=== PATIENT | male | born 1955 | race Caucasian/White ===

== ENCOUNTER 2018-09-30 11:04 | Inpatient (IN) | payer SELFPAY ==
[2018-09-30 12:31] VITALS: BMI 24.7
--- NOTE | 2018-09-30 14:40 | HP ---
CIWA Score Nausea/Vomitin-No Nausea/No Vomiting Muscle Tremors: 4-Moderate,w/Arms Extend Anxiety: 2 Agitation: 3 Paroxysmal Sweats: 3 Orientation: 0-Oriented Tacttile Disturbances: 0-None Auditory Disturbances: 0-None Visual Disturbances: 0-None Headache: 0-None Present CIWA-Ar Total Score: 12 - Admission Criteria OASAS Guidelines: Admission for Medically Managed Detox: Requires at least one of the followin. CIWA greater than 12 2. Seizures within the past 24 hours 3. Delirium tremens within the past 24 hours 4. Hallucinations within the past 24 hours 5. Acute intervention needed for co occurring medical disorder 6. Acute intervention needed for co occurring psychiatric disorder 7. Severe withdrawal that cannot be handled at a lower level of care (continued vomiting, continued diarrhea, abnormal vital signs) requiring intravenous medication and/or fluids 8. Admission ROS [facility] - HPI Chief Complaint: I lost my job and started drinking excessively. Allergies/Adverse Reactions: Allergies Allergy/AdvReac Type Severity Reaction Status Date / Time No Known Allergies Allergy Verified 09/30/18 12:07 History of Present Illness: pt is a 63yrold male with a history of alcohol dependence seeking detox for treatment. Pt longest sobriety was one year. Exam Limitations: No Limitations - Ebola screening Have you traveled outside of the country in the last 21 days: No Have you had contact with anyone from an Ebola affected area: No Have you been sick,other than usual withdrawal symptoms: No Do you have a fever: No - Review of Systems Constitutional: Loss of Appetite, Night Sweats, Changes in sleep EENT: reports: Tearing, Nose Congestion Respiratory: reports: No Symptoms reported Cardiac: reports: Lightheadedness GI: reports: Constipated, Poor Fluid Intake : reports: No Symptoms Reported Musculoskeletal: reports: Other (mild left leg swelling. pt has appt with vascular MD end september) Integumentary: reports: No Symptoms Reported Neuro: reports: Tingling, Tremors Endocrine: reports: Excessive Sweating, Flushing, Intolerance to Cold, Intolerance to Heat Hematology: reports: No Symptoms Reported Psychiatric: reports: Judgement Intact, Mood/Affect Appropiate, Orientated x3, Agitated, Anxious Other Systems: Reviewed and Negative Patient History - Patient Medical History Hx Anemia: No Hx Asthma: No Hx Chronic Obstructive Pulmonary Disease (COPD): No Hx Cancer: No Hx Cardiac Disorders: No Hx Congestive Heart Failure: No Hx Hypertension: Yes (not taking any meds now) Hx Hypercholesterolemia: Yes (not taking any meds now) Hx Pacemaker: No HX Cerebrovascular Accident: No Hx Seizures: No Hx Dementia: No Hx Diabetes: No Hx Gastrointestinal Disorders: No Hx Liver Disease: No Hx Genitourinary Disorders: No Hx Sexually Transmitted Disorders: No Hx Renal Disease (ESRD): No Hx Thyroid Disease: No Hx Human Immunodeficiency Virus (HIV): No (negative) Hx Hepatitis C: No (negative) Hx Depression: Yes Hx Suicide Attempt: No (pt denies) Hx Bipolar Disorder: No Hx Schizophrenia: No - Patient Surgical History Past Surgical History: No Hx Neurologic Surgery: No Hx Cataract Extraction: No Hx Cardiac Surgery: No Hx Lung Surgery: No Hx Breast Surgery: No Hx Breast Biopsy: No Hx Abdominal Surgery: No Hx Appendectomy: No Hx Cholecystectomy: No Hx Genitourinary Surgery: No Hx Section: No Hx Orthopedic Surgery: No - PPD History Previous Implant?: Yes Documented Results: Negative w/o proof PPD to be Administered?: No - Reproductive History Patient is a Female of Child Bearing Age (11 -55 yrs old): No - Smoking Cessation Smoking history: Current every day smoker Have you smoked in the past 12 months: Yes Aproximately how many cigarettes per day: 10 Hx Chewing Tobacco Use: No Initiated information on smoking cessation: Yes 'Breaking Loose' booklet given: 09/30/18 - Substance & Tx. History Hx Alcohol Use: Yes Hx Substance Use: Yes Substance Use Type: Alcohol, Tranquilizers Hx Substance Use Treatment: No (last detox [facility] 6month ago) - Substances abused Alcohol Substance route: Oral Frequency: Daily Amount used: 2 PINT VODKA Age of first use: 17 Date of last use: 09/30/18 Benzodiazepine (Klonopin) Substance route: Oral Frequency: 1-2 times per week Amount used: 10MG Age of first use: 24 Date of last use: 09/26/18 Family Disease History - Family Disease History Family History: Denies Admission Physical Exam [facility] - Vital Signs Vital Signs: Vital Signs - 24 hr 09/30/18 09/30/18 12:22 13:29 Temperature 98 F 98 F Pulse Rate 71 71 Respiratory 14 14 Rate Blood Pressure 125/79 125/79 - Physical General Appearance: Yes: Within Normal Limits, Moderate Distress, Tremorous, Irritable, Sweating, Anxious HEENTM: Yes: Hearing grossly Normal, Normal Voice, Nasal Congestion, Rhinorrhea Respiratory: Yes: Lungs Clear, Normal Breath Sounds, No Respiratory Distress Neck: Yes: No masses,lesions,Nodules Breast: Yes: Within Normal Limits Cardiology: Yes: Regular Rhythm, Regular Rate, S1, S2 Abdominal: Yes: Normal Bowel Sounds, Non Tender, Soft Genitourinary: Yes: Within Normal Limits Back: Yes: Normal Inspection Musculoskeletal: Yes: full range of Motion, Back pain Extremities: Yes: Normal Capillary Refill, Normal Inspection, Non-Tender, Tremors Neurological: Yes: Fully Oriented, Alert, Normal Response Integumentary: Yes: Normal Color, Diaphoresis Lymphatic: Yes: Within Normal Limits - Diagnostic (1) Drug-induced mood disorder Current Visit: No Status: Acute (2) Hypertension Current Visit: Yes Status: Acute Qualifiers: Hypertension type: essential hypertension Qualified Code(s): I10 - Essential (primary) hypertension (3) Mood disorder Current Visit: No Status: Acute (4) GERD (gastroesophageal reflux disease) Current Visit: Yes Status: Chronic Qualifiers: Esophagitis presence: without esophagitis Qualified Code(s): K21.9 - Gastro -esophageal reflux disease without esophagitis (5) Methadone maintenance therapy patient Current Visit: Yes Status: Chronic Comment: last Methadone today with 60mg. pending verification (6) Nicotine dependence Current Visit: Yes Status: Chronic Qualifiers: Nicotine product type: cigarettes Substance use status: uncomplicated Qualified Code(s): F17.210 - Nicotine dependence, cigarettes, uncomplicated (7) Alcohol dependence with uncomplicated withdrawal Current Visit: Yes Status: Chronic Cleared for Admission [facility] - Detox or Rehab [facility] Level of Care: Medically Managed Detox Regimen/Protocol: Librium Breathalyzer - Breathalyzer Breathalyzer: 0.41 Urine Drug Screen - Test Device Lot number: [id number] Expiration date: 07/16/20 - Control Is test valid?: Yes - Results Drug screen NEGATIVE: No Urine drug screen results: MTD-Methadone Inpatient Rehab Admission - Rehab Decision to Admit Inpatient rehab admission?: No
[2018-09-30] MEDS ORDERED: MELATONIN 5 MG TABLETS PO PRN (14:49)
[2018-09-30] MEDS ORDERED: chlordiazePOXIDE HCL 25 MG CAPSULE PO PRN (14:49)
[2018-09-30] MEDS ORDERED: NICOTINE POLACRILEX 4 MG GUM BUC PRN (14:49)
[2018-09-30] MEDS ORDERED: IBUPROFEN 400 MG TABLET (FP) PO PRN (14:49)
[2018-09-30] MEDS ORDERED: MENTHOL/PHENOL 1 EACH UD MM PRN (14:49)
[2018-09-30] MEDS ORDERED: ACETAMINOPHEN 325 MG TABLET (FP) PO PRN ×2 (14:49)
[2018-09-30] MEDS ORDERED: MAGNESIUM CITRATE 300 ML BOTTLE PO PRN (14:49)
[2018-09-30] MEDS ORDERED: MAG HYDROX/AL HYDROX/SIMETH 30 ML UNIT-DOSE CUP PO PRN (14:49)
[2018-09-30] MEDS ORDERED: MAGNESIUM HYDROX 2400MG/30ML ORAL SUSPENSION 30 ML CUP PO PRN (14:49)
[2018-09-30] MEDS ORDERED: ONDANSETRON *ODT* 4 MG TABLET SL PRN (14:49)
[2018-09-30] MEDS ORDERED: METHOCARBAMOL 500 MG TABLET PO PRN (14:49)
[2018-09-30] MEDS ORDERED: hydrOXYzine PAMOATE 25 MG CAPSULE (FP) PO PRN (14:49)
[2018-09-30] MEDS: chlordiazePOXIDE HCL 25 MG CAPSULE PO SCH ×2 (16:43→22:06)
--- NOTE | 2018-09-30 17:20 | PN ---
[facility] Progress Note Note: Got a call from the nurse stating that pt has a bottle of seroquel which shows that pt is prescribed seroquel 400mg qhs- will give one dose 200mg qhs and h/u MH tomorrow
[2018-09-30] MEDS ORDERED: QUEtiapine FUMARATE 200 MG TABLET PO ONE (18:00)
[2018-09-30] MEDS ORDERED: QUEtiapine FUMARATE 200 MG TABLET PO SCH (22:00)
[2018-09-30] MEDS: THIAMINE HCL 100 MG TABLET (FP) PO SCH (22:05)
[2018-09-30 23:54] LABS: HEMOGLOBIN 14.1 GM/dL (11.7-16.9); MCH 31.4 pg (25.7-33.7); MCHC 34.3 g/dl (32.0-35.9); MEAN CELL VOLUME 91.6 fl (80-96); MEAN PLT VOLUME 8.5 fl (7.5-11.1); PLATELET COUNT 252 K/MM3 (134-434); RBC 4.48 M/mm3 (4.00-5.60); WHITE BLOOD COUNT 5.4 K/mm3 (4.0-10.0)
[2018-10-01 00:06] LABS: ALBUMIN 3.7 g/dl (3.4-5.0); BILIRUBIN,TOTAL 0.6 mg/dL (0.2-1); CALCIUM 8.6 mg/dL (8.5-10.1); CREATININE 0.7 mg/dL (0.55-1.3); POTASSIUM 4.5 mmol/L (3.5-5.1); TOT PROT 8.1 g/dl (6.4-8.2)
[2018-10-01] MEDS ORDERED: METHADONE HCL 40 MG DISPERSABLE TABLET ONE (05:33)
[2018-10-01] MEDS ORDERED: METHADONE HCL 10 MG TABLET ONE (05:33)
[2018-10-01] MEDS: chlordiazePOXIDE HCL 25 MG CAPSULE PO SCH ×4 (05:34→22:01)
[2018-10-01] MEDS: METHADONE 40 MG, METHADONE 20 MG PO SCH (05:34)
[2018-10-01] MEDS ORDERED: METHADONE HCL 10 MG TABLET PO SCH (06:00)
--- NOTE | 2018-10-01 10:00 | CONSULT ---
[facility] Psychiatric Consult - Data Date of interview: 10/01/18 Admission source: [facility] Identifying data: Patient is a 63 year old single male, without children, unemployed, and is currently homeless. This is one of multiple admissions for patient. Patient admitted to for alcohol dependence. Substance Abuse History: - Smoking Cessation. Smoking history: Current every day smoker. Have you smoked in the past 12 months: Yes. Aproximately how many cigarettes per day: 10. Hx Chewing Tobacco Use: No. Initiated information on smoking cessation: Yes. 'Breaking Loose' booklet given: 09/30/18. - Substance & Tx. History. Hx Alcohol Use: Yes. Hx Substance Use: Yes. Substance Use Type : Alcohol, Tranquilizers. Hx Substance Use Treatment: No (last detox [facility] 6[facility] ago). - Substances abused. Alcohol. Substance route: Oral. Frequency: Daily. Amount used: 2 PINT VODKA. Age of first use: 17. Date of last use: 09/30/18. Benzodiazepine (Klonopin). Substance route: Oral. Frequency: 1-2 times per week. Amount used: 10MG. Age of first use: 24. Date of last use: 09/26/18 Medical History: hypertension, hypercholesterolemia, GERD Psychiatric History: Patient denies h/o psychiatric hospitalization and suicide attempt. States his first psychiatric contact was last year after he saw a psychiatrist in [place], [place] at an outpatient clinic to address his depression. As per previous entries, patient has been provided with outpatient psychiatric care at the [facility] in 2014. Mr. Jones reports a diagnosis of depression. Currently, Mr. Jones reports taking seroquel 400mg HS. External records reviewed and medications verified. Patient received a one time dose of seroquel 200mg last night. At present, patient presents as slightly irritable. Physical/Sexual Abuse/Trauma History: Patient denies h/o physical and sexual abuse Mental Status Exam - Mental Status Exam Alert and Oriented to: Time, Place, Person Cognitive Function: Good Patient Appearance: Well Groomed Mood: Withdrawn, Irritable (slightly irritable) Affect: Mood Congruent Patient Behavior: Fatigued, Cooperative Speech Pattern: Clear Voice Loudness: Moderately Soft/Quiet Thought Process: Goal Oriented Thought Disorder: Not Present Hallucinations: Denies Suicidal Ideation: Denies Homicidal Ideation: Denies Insight/Judgement: Poor Sleep: Fair Appetite: Fair Muscle strength/Tone: Normal Gait/Station: Normal Psychiatric Findings - Problem List ([place] 1, 2,3) (1) Alcohol dependence with uncomplicated withdrawal Current Visit: Yes Status: Acute (2) Nicotine dependence Current Visit: Yes Status: Chronic Qualifiers: Nicotine product type: cigarettes Substance use status: uncomplicated Qualified Code(s): F17.210 - Nicotine dependence, cigarettes, uncomplicated (3) Mood disorder Current Visit: Yes Status: Chronic - Initial Treatment Plan Initial Treatment Plan: Psychoeducation provided. Detoxification in progress. Will order Seroquel 300mg HS (medication reduce due to risk of falls and oversedation). Benefits and side effects discussed. Verbal consent given.
[2018-10-01] MEDS: ENALAPRIL MALEATE 10 MG TABLET (FP) PO SCH (10:25)
[2018-10-01] MEDS: PRENATAL VITAMINS W/ FOLIC ACID TABLET (FP) PO SCH (10:25)
[2018-10-01] MEDS: ASPIRIN COATED 81 MG TABLET.EC PO SCH (10:26)
[2018-10-01] MEDS: NICOTINE 21 MG/24 HOURS TOPICAL PATCH TD SCH (10:26)
--- NOTE | 2018-10-01 11:11 | PN ---
[facility] CIWA - CIWA Score Nausea/Vomitin-Mild Nausea/No Vomiting Muscle Tremors: 2 Anxiety: 4-Mod. Anxious/Guarded Agitation: 3 Paroxysmal Sweats: 1-Minimal Palms Moist Orientation: 0-Oriented Tacttile Disturbances: 0-None Auditory Disturbances: 0-None Visual Disturbances: 0-None Headache: 0-None Present CIWA-Ar Total Score: 11 S Progress Note (SOAP) Subjective: feeling ok today after methadone 60 mg po received 63 years old male admitted on 09/30/18 for alcohol and benzo withdrawal sx medical history of hypertension treated with lisinopril Objective: 10/01/18 11:11 Vital Signs Temperature 96.8 F L 10/01/18 09:09 Pulse Rate 65 10/01/18 09:09 Respiratory Rate 18 10/01/18 09:09 Blood Pressure 139/75 10/01/18 09:09 O2 Sat by Pulse Oximetry (%) Laboratory Last Values WBC 5.4 K/mm3 (4.0-10.0) 09/30/18 15:00 RBC 4.48 M/mm3 (4.00-5.60) 09/30/18 15:00 Hgb 14.1 GM/dL (11.7-16.9) 09/30/18 15:00 Hct 41.0 % (35.4-49) 09/30/18 15:00 MCV 91.6 fl (80-96) 09/30/18 15:00 MCH 31.4 pg (25.7-33.7) 09/30/18 15:00 MCHC 34.3 g/dl (32.0-35.9) 09/30/18 15:00 RDW 13.0 % (11.9-15.9) 09/30/18 15:00 Plt Count 252 K/MM3 (134-434) D 09/30/18 15:00 MPV 8.5 fl (7.5-11.1) 09/30/18 15:00 Sodium 138 mmol/L (136-145) 09/30/18 15:00 Potassium 4.5 mmol/L (3.5-5.1) 09/30/18 15:00 Chloride 102 mmol/L (98-107) 09/30/18 15:00 Carbon Dioxide 30 mmol/L (21-32) 09/30/18 15:00 Anion Gap 6 MMOL/L (8-16) L 09/30/18 15:00 BUN 15.0 mg/dL (7-18) 09/30/18 15:00 Creatinine 0.7 mg/dL (0.55-1.3) 09/30/18 15:00 Est GFR (CKD-EPI)AfAm 115.59 09/30/18 15:00 Est GFR (CKD-EPI)NonAf 99.73 09/30/18 15:00 Random Glucose 81 mg/dL (74-106) 09/30/18 15:00 Calcium 8.6 mg/dL (8.5-10.1) 09/30/18 15:00 Total Bilirubin 0.6 mg/dL (0.2-1) 09/30/18 15:00 AST 178 U/L (15-37) H 09/30/18 15:00 ALT 173 U/L (13-61) H 09/30/18 15:00 Alkaline Phosphatase 174 U/L (45-117) H 09/30/18 15:00 Total Protein 8.1 g/dl (6.4-8.2) 09/30/18 15:00 Albumin 3.7 g/dl (3.4-5.0) 09/30/18 15:00 RPR Titer Nonreactive (NONREACTIVE) 09/30/18 15:00 TB Test (QFT) Nil Cancelled 10/01/18 08:20 TB Test (QFT) Mitogen Cancelled 10/01/18 08:20 TB Test (QFT) Antigen Cancelled 10/01/18 08:20 TB Test (QFT) Cancelled 10/01/18 08:20 TB Positive Criteria Cancelled 10/01/18 08:20 lab noted ast elevation repeat ast 10/03/18 10/01/18 11:13 Assessment: 10/01/18 11:14 alcohol and benzo withdrawal sx Plan: continue alcohol and benzo detox
[2018-10-01] MEDS ORDERED: QUEtiapine FUMARATE 100 MG TABLET (FP) ONE (20:58)
[2018-10-01] MEDS: THIAMINE HCL 100 MG TABLET (FP) PO SCH (22:01)
[2018-10-01] MEDS: QUEtiapine FUMARATE 300 MG TABLET PO SCH (22:02)
[2018-10-02] MEDS ORDERED: METHADONE HCL 10 MG TABLET ONE (04:13)
[2018-10-02] MEDS ORDERED: METHADONE HCL 40 MG DISPERSABLE TABLET ONE (04:14)
[2018-10-02] MEDS: chlordiazePOXIDE HCL 25 MG CAPSULE PO SCH ×4 (06:48→22:05)
[2018-10-02] MEDS: METHADONE 40 MG, METHADONE 20 MG PO SCH (06:48)
[2018-10-02] MEDS: NICOTINE 21 MG/24 HOURS TOPICAL PATCH TD SCH (10:24)
[2018-10-02] MEDS: ASPIRIN COATED 81 MG TABLET.EC PO SCH (10:24)
[2018-10-02] MEDS: PRENATAL VITAMINS W/ FOLIC ACID TABLET (FP) PO SCH (10:24)
[2018-10-02] MEDS: ENALAPRIL MALEATE 10 MG TABLET (FP) PO SCH (10:24)
--- NOTE | 2018-10-02 14:58 | PN ---
[facility] CIWA - CIWA Score Nausea/Vomitin-Mild Nausea/No Vomiting Muscle Tremors: 2 Anxiety: 3 Agitation: 2 Paroxysmal Sweats: No Perspiration Orientation: 0-Oriented Tacttile Disturbances: 0-None Auditory Disturbances: 0-None Visual Disturbances: 0-None Headache: 0-None Present CIWA-Ar Total Score: 8 S Progress Note (SOAP) Subjective: anxiousness headaches willing to discuss aftercare with staff today that he is willing to go any aftercare arranged for him Objective: 10/02/18 15:02 Vital Signs Temperature 97.8 F 10/02/18 13:21 Pulse Rate 60 10/02/18 13:21 Respiratory Rate 18 10/02/18 13:21 Blood Pressure 97/61 10/02/18 13:21 O2 Sat by Pulse Oximetry (%) Laboratory Last Values WBC 5.4 K/mm3 (4.0-10.0) 09/30/18 15:00 RBC 4.48 M/mm3 (4.00-5.60) 09/30/18 15:00 Hgb 14.1 GM/dL (11.7-16.9) 09/30/18 15:00 Hct 41.0 % (35.4-49) 09/30/18 15:00 MCV 91.6 fl (80-96) 09/30/18 15:00 MCH 31.4 pg (25.7-33.7) 09/30/18 15:00 MCHC 34.3 g/dl (32.0-35.9) 09/30/18 15:00 RDW 13.0 % (11.9-15.9) 09/30/18 15:00 Plt Count 252 K/MM3 (134-434) D 09/30/18 15:00 MPV 8.5 fl (7.5-11.1) 09/30/18 15:00 Sodium 138 mmol/L (136-145) 09/30/18 15:00 Potassium 4.5 mmol/L (3.5-5.1) 09/30/18 15:00 Chloride 102 mmol/L (98-107) 09/30/18 15:00 Carbon Dioxide 30 mmol/L (21-32) 09/30/18 15:00 Anion Gap 6 MMOL/L (8-16) L 09/30/18 15:00 BUN 15.0 mg/dL (7-18) 09/30/18 15:00 Creatinine 0.7 mg/dL (0.55-1.3) 09/30/18 15:00 Est GFR (CKD-EPI)AfAm 115.59 09/30/18 15:00 Est GFR (CKD-EPI)NonAf 99.73 09/30/18 15:00 Random Glucose 81 mg/dL (74-106) 09/30/18 15:00 Calcium 8.6 mg/dL (8.5-10.1) 09/30/18 15:00 Total Bilirubin 0.6 mg/dL (0.2-1) 09/30/18 15:00 AST 178 U/L (15-37) H 09/30/18 15:00 ALT 173 U/L (13-61) H 09/30/18 15:00 Alkaline Phosphatase 174 U/L (45-117) H 09/30/18 15:00 Total Protein 8.1 g/dl (6.4-8.2) 09/30/18 15:00 Albumin 3.7 g/dl (3.4-5.0) 09/30/18 15:00 RPR Titer Nonreactive (NONREACTIVE) 09/30/18 15:00 TB Test (QFT) Nil Cancelled 10/01/18 08:20 TB Test (QFT) Mitogen Cancelled 10/01/18 08:20 TB Test (QFT) Antigen Cancelled 10/01/18 08:20 TB Test (QFT) Cancelled 10/01/18 08:20 TB Positive Criteria Cancelled 10/01/18 08:20 lab noted Assessment: 10/02/18 15:03 alcohol and benzo withdrawal sx Plan: continue alcohol and benzo detox
--- NOTE | 2018-10-02 15:56 | EKG ---
Test Reason : Blood Pressure : / mmHG Vent. Rate : 070 BPM Atrial Rate : 070 BPM P-R Int : 134 ms QRS Dur : 084 ms QT Int : 420 ms P-R-T Axes : 024 058 062 degrees QTc Int : 453 ms NORMAL SINUS RHYTHM NORMAL ECG NO PREVIOUS ECGS AVAILABLE Confirmed by FAITH HUDSON, ISAIAS ([id number]) on 10/02/2018 3:56:09 PM Referred By: Confirmed By:ISAIAS CUEVAS MD
[2018-10-02] MEDS ORDERED: QUEtiapine FUMARATE 100 MG TABLET (FP) ONE (19:41)
[2018-10-02] MEDS: THIAMINE HCL 100 MG TABLET (FP) PO SCH (22:04)
[2018-10-02] MEDS: QUEtiapine FUMARATE 300 MG TABLET PO SCH (22:04)
[2018-10-03] MEDS ORDERED: METHADONE HCL 10 MG TABLET ONE (04:44)
[2018-10-03] MEDS ORDERED: METHADONE HCL 40 MG DISPERSABLE TABLET ONE (04:44)
[2018-10-03] MEDS: chlordiazePOXIDE HCL 10 MG CAPSULE PO SCH ×4 (05:37→22:07)
[2018-10-03] MEDS: METHADONE 40 MG, METHADONE 20 MG PO SCH (05:37)
[2018-10-03] MEDS: ASPIRIN COATED 81 MG TABLET.EC PO SCH (10:30)
[2018-10-03] MEDS: NICOTINE 21 MG/24 HOURS TOPICAL PATCH TD SCH (10:30)
[2018-10-03] MEDS: PRENATAL VITAMINS W/ FOLIC ACID TABLET (FP) PO SCH (10:30)
[2018-10-03] MEDS: ENALAPRIL MALEATE 10 MG TABLET (FP) PO SCH (11:06)
--- NOTE | 2018-10-03 11:36 | PN ---
S CIWA - CIWA Score Nausea/Vomitin-No Nausea/No Vomiting Muscle Tremors: 2 Anxiety: 2 Agitation: 2 Paroxysmal Sweats: 1-Minimal Palms Moist Orientation: 0-Oriented Tacttile Disturbances: 0-None Auditory Disturbances: 0-None Visual Disturbances: 0-None Headache: 0-None Present CIWA-Ar Total Score: 7 S Progress Note (SOAP) Subjective: feeling better today social with peers in day room ambulating on hallway less tremor discuss aftercare with staff prefers [facility] Objective: 10/03/18 11:36 Vital Signs Temperature 97.4 F L 10/03/18 09:14 Pulse Rate 67 10/03/18 09:14 Respiratory Rate 16 10/03/18 09:14 Blood Pressure 99/62 10/03/18 09:14 O2 Sat by Pulse Oximetry (%) Laboratory Last Values WBC 5.4 K/mm3 (4.0-10.0) 09/30/18 15:00 RBC 4.48 M/mm3 (4.00-5.60) 09/30/18 15:00 Hgb 14.1 GM/dL (11.7-16.9) 09/30/18 15:00 Hct 41.0 % (35.4-49) 09/30/18 15:00 MCV 91.6 fl (80-96) 09/30/18 15:00 MCH 31.4 pg (25.7-33.7) 09/30/18 15:00 MCHC 34.3 g/dl (32.0-35.9) 09/30/18 15:00 RDW 13.0 % (11.9-15.9) 09/30/18 15:00 Plt Count 252 K/MM3 (134-434) D 09/30/18 15:00 MPV 8.5 fl (7.5-11.1) 09/30/18 15:00 Sodium 138 mmol/L (136-145) 09/30/18 15:00 Potassium 4.5 mmol/L (3.5-5.1) 09/30/18 15:00 Chloride 102 mmol/L (98-107) 09/30/18 15:00 Carbon Dioxide 30 mmol/L (21-32) 09/30/18 15:00 Anion Gap 6 MMOL/L (8-16) L 09/30/18 15:00 BUN 15.0 mg/dL (7-18) 09/30/18 15:00 Creatinine 0.7 mg/dL (0.55-1.3) 09/30/18 15:00 Est GFR (CKD-EPI)AfAm 115.59 09/30/18 15:00 Est GFR (CKD-EPI)NonAf 99.73 09/30/18 15:00 Random Glucose 81 mg/dL (74-106) 09/30/18 15:00 Calcium 8.6 mg/dL (8.5-10.1) 09/30/18 15:00 Total Bilirubin 0.6 mg/dL (0.2-1) 09/30/18 15:00 AST 22 U/L (15-37) 10/03/18 07:00 ALT 173 U/L (13-61) H 09/30/18 15:00 Alkaline Phosphatase 174 U/L (45-117) H 09/30/18 15:00 Total Protein 8.1 g/dl (6.4-8.2) 09/30/18 15:00 Albumin 3.7 g/dl (3.4-5.0) 09/30/18 15:00 RPR Titer Nonreactive (NONREACTIVE) 09/30/18 15:00 TB (QFT) Incubation (.) 10/01/18 08:05 TB Test (QFT) Nil Cancelled 10/01/18 08:20 TB Test (QFT) Mitogen Cancelled 10/01/18 08:20 TB Test (QFT) Antigen Cancelled 10/01/18 08:20 TB Test (QFT) Cancelled 10/01/18 08:20 TB Positive Criteria Cancelled 10/01/18 08:20 lab noted Assessment: 10/03/18 11:37 alcohol and benzo withdrawal sx Plan: continue alcohol and benzo detox
[2018-10-03] MEDS ORDERED: QUEtiapine FUMARATE 100 MG TABLET (FP) ONE (21:05)
[2018-10-03] MEDS: THIAMINE HCL 100 MG TABLET (FP) PO SCH (22:07)
[2018-10-03] MEDS: QUEtiapine FUMARATE 300 MG TABLET PO SCH (22:07)
[2018-10-04] MEDS ORDERED: METHADONE HCL 10 MG TABLET ONE (04:44)
[2018-10-04] MEDS ORDERED: METHADONE HCL 40 MG DISPERSABLE TABLET ONE (04:45)
[2018-10-04] MEDS: METHADONE 40 MG, METHADONE 20 MG PO SCH (05:20)
[2018-10-04] MEDS: chlordiazePOXIDE HCL 10 MG CAPSULE PO SCH ×2 (05:20→17:24)
[2018-10-04] MEDS: PRENATAL VITAMINS W/ FOLIC ACID TABLET (FP) PO SCH (10:18)
[2018-10-04] MEDS: ASPIRIN COATED 81 MG TABLET.EC PO SCH (10:19)
[2018-10-04] MEDS: ENALAPRIL MALEATE 10 MG TABLET (FP) PO SCH (10:19)
[2018-10-04] MEDS: NICOTINE 21 MG/24 HOURS TOPICAL PATCH TD SCH (10:19)
--- NOTE | 2018-10-04 16:01 | PN ---
S CIWA - CIWA Score Nausea/Vomitin-No Nausea/No Vomiting Muscle Tremors: None Anxiety: 3 Agitation: 1-Slight > Activity Paroxysmal Sweats: No Perspiration Orientation: 0-Oriented Tacttile Disturbances: 1-Very Mild Itch/Numbness Auditory Disturbances: 0-None Visual Disturbances: 0-None Headache: 0-None Present CIWA-Ar Total Score: 5 BHS Progress Note (SOAP) Subjective: Anxious. Objective: PATIENT A & O X 3, OBSERVED AMBULATING ON UNIT UNASSISTED. IN NO ACUTE DISTRESS. 10/04/18 15:59 Vital Signs Temperature 99.0 F 10/04/18 13:55 Pulse Rate 68 10/04/18 13:55 Respiratory Rate 18 10/04/18 13:55 Blood Pressure 101/64 10/04/18 13:55 O2 Sat by Pulse Oximetry (%) Laboratory Tests 09/30/18 09/30/18 09/30/18 15:00 15:00 15:00 WBC 5.4 RBC 4.48 Hgb 14.1 Hct 41.0 MCV 91.6 MCH 31.4 MCHC 34.3 RDW 13.0 Plt Count 252 D MPV 8.5 Sodium 138 Potassium 4.5 Chloride 102 Carbon Dioxide 30 Anion Gap 6 L BUN 15.0 Creatinine 0.7 Est GFR (CKD-EPI)AfAm 115.59 Est GFR (CKD-EPI)NonAf 99.73 Random Glucose 81 Calcium 8.6 Total Bilirubin 0.6 AST 178 H ALT 173 H Alkaline Phosphatase 174 H Total Protein 8.1 Albumin 3.7 RPR Titer Nonreactive TB (QFT) Incubation TB Test (QFT) Nil TB Test (QFT) Mitogen TB Test (QFT) Antigen TB Test (QFT) TB Positive Criteria 10/01/18 10/01/18 10/03/18 08:05 08:20 07:00 WBC RBC Hgb Hct MCV MCH MCHC RDW Plt Count MPV Sodium Potassium Chloride Carbon Dioxide Anion Gap BUN Creatinine Est GFR (CKD-EPI)AfAm Est GFR (CKD-EPI)NonAf Random Glucose Calcium Total Bilirubin AST 22 ALT Alkaline Phosphatase Total Protein Albumin RPR Titer TB (QFT) Incubation TB Test (QFT) Nil 0.04 Cancelled TB Test (QFT) Mitogen >10.00 Cancelled TB Test (QFT) Antigen 0.12 Cancelled TB Test (QFT) Negative Cancelled TB Positive Criteria Cancelled LABS NOTED. Assessment: 10/04/18 16:00 WITHDRAWAL SYMPTOMS. ELEVATED LIVER ENZYMES. Plan: CONTINUE DETOX. PATIENT SCHEDULED FOR D/C FROM DETOX UNIT TOMORROW.
[2018-10-04] MEDS ORDERED: QUEtiapine FUMARATE 100 MG TABLET (FP) ONE (21:06)
[2018-10-04] MEDS: THIAMINE HCL 100 MG TABLET (FP) PO SCH (21:26)
[2018-10-04] MEDS: QUEtiapine FUMARATE 300 MG TABLET PO SCH (21:26)
[2018-10-05] MEDS ORDERED: METHADONE HCL 40 MG DISPERSABLE TABLET ONE (04:38)
[2018-10-05] MEDS ORDERED: METHADONE HCL 10 MG TABLET ONE (04:38)
[2018-10-05] MEDS ORDERED: chlordiazePOXIDE HCL 10 MG CAPSULE PO ONE (05:00)
[2018-10-05] MEDS: METHADONE 40 MG, METHADONE 20 MG PO SCH (05:47)
[2018-10-05 06:26] VITALS: BP 125/76; PULSE 61; TEMP 97.3
--- NOTE | 2018-10-05 19:41 | DS ---
[facility] Detox Discharge Summary Admission Date: 09/30/18 Discharge Date: 10/05/18 - History Present History: Alcohol Dependence, Opioid Dependence, MMTP Additional Comments: PATIENT LEFT DETOX UNIT EARLY IN AM PRIOR TO ITME OF ARRIVAL OF HAND II THERMAL CUTTER ONTO DETOX UNIT. PER CASE NAVID SHORT, PATIENT RETURNING TO [facility] ([place], [place]) FOR AFTERCARE. PATIENT WILL ALSO LIKELY APPLY TO [facility]. Pertinent Past History: Hyperlipidemia, HTN, Depression, M.M.T.P., History Of Mood Disorder, G.E.R.D., Nicotine Dependence. - Physical Exam Results Vital Signs: Vital Signs Temperature 97.3 F L 10/05/18 06:26 Pulse Rate 61 10/05/18 06:26 Respiratory Rate 16 10/05/18 06:26 Blood Pressure 125/76 10/05/18 06:26 O2 Sat by Pulse Oximetry (%) Pertinent Admission Physical Exam Findings: WITHDRAWAL SYMPTOMS. Laboratory Tests 09/30/18 09/30/18 09/30/18 15:00 15:00 15:00 WBC 5.4 RBC 4.48 Hgb 14.1 Hct 41.0 MCV 91.6 MCH 31.4 MCHC 34.3 RDW 13.0 Plt Count 252 D MPV 8.5 Sodium 138 Potassium 4.5 Chloride 102 Carbon Dioxide 30 Anion Gap 6 L BUN 15.0 Creatinine 0.7 Est GFR (CKD-EPI)AfAm 115.59 Est GFR (CKD-EPI)NonAf 99.73 Random Glucose 81 Calcium 8.6 Total Bilirubin 0.6 AST 178 H ALT 173 H Alkaline Phosphatase 174 H Total Protein 8.1 Albumin 3.7 RPR Titer Nonreactive TB (QFT) Incubation TB Test (QFT) Nil TB Test (QFT) Mitogen TB Test (QFT) Antigen TB Test (QFT) TB Positive Criteria 10/01/18 10/01/18 10/03/18 08:05 08:20 07:00 WBC RBC Hgb Hct MCV MCH MCHC RDW Plt Count MPV Sodium Potassium Chloride Carbon Dioxide Anion Gap BUN Creatinine Est GFR (CKD-EPI)AfAm Est GFR (CKD-EPI)NonAf Random Glucose Calcium Total Bilirubin AST 22 ALT Alkaline Phosphatase Total Protein Albumin RPR Titer TB (QFT) Incubation TB Test (QFT) Nil 0.04 Cancelled TB Test (QFT) Mitogen >10.00 Cancelled TB Test (QFT) Antigen 0.12 Cancelled TB Test (QFT) Negative Cancelled TB Positive Criteria Cancelled LABS NOTED. - Treatment Hospital Course: Detox Protocol Followed, Detoxed Safely, Responded well, Discharged Condition Good Patient has Accepted a Rehab Referral to: PT. [facility] ([place], [place]). - Medication Discharge Medications: Ambulatory Orders Aspirin Coated [Ecotrin -] 81 mg PO DAILY 09/30/18 Enalapril Maleate [Vasotec -] 10 mg PO DAILY 09/30/18 Quetiapine Fumarate [Seroquel] 400 mg PO HS 09/30/18 - Diagnosis (1) Alcohol dependence with uncomplicated withdrawal Status: Acute (2) Drug-induced mood disorder Status: Acute (3) Elevated liver enzymes Status: Acute (4) Hypertension Status: Acute Qualifiers: Hypertension type: essential hypertension Qualified Code(s): I10 - Essential (primary) hypertension (5) GERD (gastroesophageal reflux disease) Status: Chronic Qualifiers: Esophagitis presence: without esophagitis Qualified Code(s): K21.9 - Gastro -esophageal reflux disease without esophagitis (6) Methadone maintenance therapy patient Status: Chronic (7) Mood disorder Status: Chronic (8) Nicotine dependence Status: Chronic Qualifiers: Nicotine product type: cigarettes Substance use status: uncomplicated Qualified Code(s): F17.210 - Nicotine dependence, cigarettes, uncomplicated - AMA Did Patient Leave Against Medical Advice: No
== END 2018-10-05 06:40 | disposition home or self-care (01) | DRG 773 ==
LOC: YASAS 11:04 → Y3N 14:50
PROVIDERS: ADMIT Surgery; ATTEND Surgery
PROC: HZ2ZZZZ Detoxification Services for Substance Abuse Treatment (ICD-10-PCS; principal; 2018-09-30)
DX: F10.230 Alcohol dependence with withdrawal, uncomplicated (principal); F13.230 Sedative, hypnotic or anxiolytic dependence with withdrawal, uncomplicated; F11.20 Opioid dependence, uncomplicated; F17.210 Nicotine dependence, cigarettes, uncomplicated; F19.24 Other psychoactive substance dependence with psychoactive substance-induced mood disorder; F39 Unspecified mood [affective] disorder; I10 Essential (primary) hypertension; R94.5 Abnormal results of liver function studies; K21.9 Gastro-esophageal reflux disease without esophagitis
CPT/HCPCS: 36415; 80053; 84450; 85027; 86480; 86593; 93005; 93010

== ENCOUNTER 2022-02-15 12:15 | Inpatient (IN) | payer BC, OTHER ==
[2022-02-15 13:28] VITALS: BMI 31.9
[2022-02-15] MEDS ORDERED: DICYCLOMINE HCL 10 MG CAPSULE PO PRN (15:17)
[2022-02-15] MEDS ORDERED: BENZOCAINE/MENTHOL (CHLORASEPTIC ) LOZENGE MM PRN (15:17)
[2022-02-15] MEDS ORDERED: MAG HYDROX/AL HYDROX/SIMETH 30 ML UNIT-DOSE CUP PO PRN (15:17)
[2022-02-15] MEDS ORDERED: NALOXONE HCL (KLOXXADO) 8 MG SPRAY NS PRN (15:17)
[2022-02-15] MEDS ORDERED: BISMUTH SUBSALICYLATE 524 MG/30 ML PO PRN (15:17)
[2022-02-15] MEDS ORDERED: LOPERAMIDE HCL 2 MG CAPSULE PO PRN (15:17)
[2022-02-15] MEDS ORDERED: IBUPROFEN 400 MG TABLET (FP) PO PRN (15:17)
[2022-02-15] MEDS ORDERED: ONDANSETRON *ODT* 4 MG TABLET SL PRN (15:17)
[2022-02-15] MEDS ORDERED: NICOTINE 10 MG CARTRIDGE (INHALER) IH PRN (15:17)
[2022-02-15] MEDS ORDERED: IBUPROFEN 600 MG TABLET (FP) PO PRN (15:17)
[2022-02-15] MEDS ORDERED: POLYETHYLENE GLYCOL (HEALTHYLAX) 3350 17 GM PACKET PO PRN (15:17)
[2022-02-15] MEDS ORDERED: ACETAMINOPHEN 325 MG TABLET (FP) PO PRN ×2 (15:17)
[2022-02-15] MEDS ORDERED: MAGNESIUM HYDROX 2400MG/30ML ORAL SUSPENSION 30 ML CUP PO PRN (15:17)
[2022-02-15] MEDS: chlordiazePOXIDE HCL 25 MG CAPSULE PO SCH ×2 (16:56→22:09)
[2022-02-15] MEDS: ENALAPRIL MALEATE 10 MG TABLET PO SCH (16:56)
[2022-02-15] MEDS: NICOTINE 21 MG/24 HOURS TOPICAL PATCH TD SCH (16:57)
[2022-02-15] MEDS: PRENATAL VITAMINS W/ FOLIC ACID TABLET (FP) PO SCH (16:59)
[2022-02-15] MEDS: ASPIRIN COATED 81 MG TABLET.EC PO SCH (16:59)
[2022-02-15] MEDS: METHOCARBAMOL 500 MG TABLET PO PRN (17:01)
[2022-02-15] MEDS ORDERED: MELATONIN 5 MG TABLETS PO SCH (22:00)
[2022-02-15] MEDS: THIAMINE HCL 100 MG TABLET (FP) PO SCH (22:09)
[2022-02-16] MEDS: chlordiazePOXIDE HCL 25 MG CAPSULE PO SCH ×4 (05:45→22:01)
[2022-02-16] MEDS ORDERED: methaDONE HCL 10 MG TABLET (FOR DETOX USE ONLY) PO ONE (07:32)
[2022-02-16] MEDS: methaDONE 40 MG, methaDONE 20 MG PO SCH (07:53)
[2022-02-16] MEDS: ASPIRIN COATED 81 MG TABLET.EC PO SCH (10:12)
[2022-02-16] MEDS: ENALAPRIL MALEATE 10 MG TABLET PO SCH (10:12)
[2022-02-16] MEDS: PRENATAL VITAMINS W/ FOLIC ACID TABLET (FP) PO SCH (10:12)
[2022-02-16] MEDS: NICOTINE 21 MG/24 HOURS TOPICAL PATCH TD SCH (10:15)
[2022-02-16 10:24] LABS: HEMATOCRIT 38.7 % (35.4-49); HEMOGLOBIN 13.2 GM/dL (11.7-16.9); MCH 31.1 pg (25.7-33.7); MCHC 34.1 g/dl (32.0-35.9); MEAN CELL VOLUME 91.4 fl (80-96); MEAN PLT VOLUME 8.4 fl (7.5-11.1); PLATELET COUNT 218 10^3/uL (134-434); RBC 4.24 M/mm3 (4.00-5.60); RDW 14.2 % (11.9-15.9); WHITE BLOOD COUNT 6.7 K/mm3 (4.0-10.0)
[2022-02-16 10:28] LABS: BLOOD UREA NITROGEN 18.6 mg/dL (7-18); CALCIUM 8.7 mg/dL (8.5-10.1)
[2022-02-16 10:31] LABS: ALBUMIN 3.5 g/dl (3.4-5.0)
[2022-02-16 10:33] LABS: BILIRUBIN,TOTAL 0.2 mg/dL (0.2-1); TOT PROT 7.5 g/dl (6.4-8.2)
[2022-02-16 10:34] LABS: CREATININE 0.8 mg/dL (0.55-1.3)
[2022-02-16 12:00] LABS: HIV INTERPRETATION NEGATIVE (NEGATIVE)
[2022-02-16] MEDS: QUEtiapine FUMARATE 200 MG TABLET PO SCH (22:00)
[2022-02-16] MEDS: THIAMINE HCL 100 MG TABLET (FP) PO SCH (22:00)
[2022-02-17] MEDS: methaDONE 40 MG, methaDONE 20 MG PO SCH (05:46)
[2022-02-17] MEDS: chlordiazePOXIDE HCL 25 MG CAPSULE PO SCH ×4 (05:46→22:05)
[2022-02-17] MEDS ORDERED: methaDONE HCL 10 MG TABLET PO ONE (06:00)
[2022-02-17] MEDS: PRENATAL VITAMINS W/ FOLIC ACID TABLET (FP) PO SCH (10:14)
[2022-02-17] MEDS: ENALAPRIL MALEATE 10 MG TABLET PO SCH (10:14)
[2022-02-17] MEDS: ASPIRIN COATED 81 MG TABLET.EC PO SCH (10:14)
[2022-02-17] MEDS: NICOTINE 21 MG/24 HOURS TOPICAL PATCH TD SCH (10:14)
[2022-02-17] MEDS: QUEtiapine FUMARATE 200 MG TABLET PO SCH (22:05)
[2022-02-17] MEDS: THIAMINE HCL 100 MG TABLET (FP) PO SCH (22:05)
[2022-02-18] MEDS: chlordiazePOXIDE HCL 10 MG CAPSULE PO SCH ×4 (05:42→22:05)
[2022-02-18] MEDS: methaDONE 40 MG, methaDONE 20 MG PO SCH (05:42)
[2022-02-18] MEDS: ASPIRIN COATED 81 MG TABLET.EC PO SCH (10:16)
[2022-02-18] MEDS: METHOCARBAMOL 500 MG TABLET PO PRN (10:16)
[2022-02-18] MEDS: ENALAPRIL MALEATE 10 MG TABLET PO SCH (10:16)
[2022-02-18] MEDS: PRENATAL VITAMINS W/ FOLIC ACID TABLET (FP) PO SCH (10:16)
[2022-02-18] MEDS: NICOTINE 21 MG/24 HOURS TOPICAL PATCH TD SCH (10:18)
[2022-02-18] MEDS: QUEtiapine FUMARATE 200 MG TABLET PO SCH (22:05)
[2022-02-18] MEDS: THIAMINE HCL 100 MG TABLET (FP) PO SCH (22:06)
[2022-02-19] MEDS: methaDONE 40 MG, methaDONE 20 MG PO SCH (05:07)
[2022-02-19] MEDS: chlordiazePOXIDE HCL 10 MG CAPSULE PO SCH ×2 (05:07→17:27)
[2022-02-19] MEDS: ENALAPRIL MALEATE 10 MG TABLET PO SCH (09:55)
[2022-02-19] MEDS: ASPIRIN COATED 81 MG TABLET.EC PO SCH (09:55)
[2022-02-19] MEDS: PRENATAL VITAMINS W/ FOLIC ACID TABLET (FP) PO SCH (09:56)
[2022-02-19] MEDS: NICOTINE 21 MG/24 HOURS TOPICAL PATCH TD SCH (09:56)
[2022-02-19] MEDS: THIAMINE HCL 100 MG TABLET (FP) PO SCH (21:52)
[2022-02-19] MEDS: QUEtiapine FUMARATE 200 MG TABLET PO SCH (21:52)
[2022-02-20] MEDS ORDERED: chlordiazePOXIDE HCL 10 MG CAPSULE PO ONE (05:00)
[2022-02-20] MEDS: methaDONE 40 MG, methaDONE 20 MG PO SCH (05:19)
[2022-02-20 06:08] VITALS: BP 109/70; PULSE 63; RESP 18; TEMP 97.1
[2022-02-20] MEDS: PRENATAL VITAMINS W/ FOLIC ACID TABLET (FP) PO SCH (09:22)
[2022-02-20] MEDS: ASPIRIN COATED 81 MG TABLET.EC PO SCH (09:22)
[2022-02-20] MEDS: ENALAPRIL MALEATE 10 MG TABLET PO SCH (09:22)
[2022-02-20] MEDS: NICOTINE 21 MG/24 HOURS TOPICAL PATCH TD SCH (09:23)
== END 2022-02-20 09:32 | disposition home or self-care (01) | DRG 897 ==
LOC: YASAS 12:15 → Y6N 16:16
PROVIDERS: ADMIT Allergy & Immunology; ATTEND Surgery
PROC: HZ2ZZZZ Detoxification Services for Substance Abuse Treatment (ICD-10-PCS; principal; 2022-02-15)
DX: F10.230 Alcohol dependence with withdrawal, uncomplicated (principal); F11.20 Opioid dependence, uncomplicated; F19.282 Other psychoactive substance dependence with psychoactive substance-induced sleep disorder; F13.10 Sedative, hypnotic or anxiolytic abuse, uncomplicated; F17.210 Nicotine dependence, cigarettes, uncomplicated; F19.24 Other psychoactive substance dependence with psychoactive substance-induced mood disorder; F32.A Depression, unspecified; F41.9 Anxiety disorder, unspecified; G47.00 Insomnia, unspecified; E78.5 Hyperlipidemia, unspecified; I25.10 Atherosclerotic heart disease of native coronary artery without angina pectoris; I10 Essential (primary) hypertension
CPT/HCPCS: 36415; 80053; 85027; 86780; 87389; C9803-CS; U0003; U0005